=== PATIENT | male | born 1935 | race Caucasian/White ===

== ENCOUNTER 2019-02-19 13:42 | Outpatient (RCR) | payer MEDICARE, SELFPAY | END 2019-03-07 23:59 | disposition home or self-care (01) | LOC: PRC 13:42 | PROVIDERS: PCP General Practice; Visit Provider Family Medicine | DX: Z51.89 Encounter for other specified aftercare (principal) ==

== ENCOUNTER 2019-03-03 13:39 | Outpatient (RCR) | payer MEDICARE, OTHER, SELFPAY | END 2019-03-07 23:59 | disposition home or self-care (01) | LOC: PRC 13:39 | PROVIDERS: PCP General Practice; Visit Provider Family Medicine | DX: Z51.89 Encounter for other specified aftercare (principal) ==

== ENCOUNTER 2019-03-27 14:57 | Outpatient (RCR) | payer MEDICARE, OTHER, SELFPAY | END 2019-04-07 23:59 | disposition home or self-care (01) | LOC: PRC 14:57 | PROVIDERS: PCP General Practice; Visit Provider Family Medicine | DX: J44.9 Chronic obstructive pulmonary disease, unspecified (principal); Z51.89 Encounter for other specified aftercare | CPT/HCPCS: G0424 ==

== ENCOUNTER 2019-05-11 16:33 | Outpatient (RCR) | payer MEDICARE, OTHER, SELFPAY | END 2019-06-06 23:59 | disposition home or self-care (01) | LOC: PRC 16:33 | PROVIDERS: PCP General Practice; Visit Provider Family Medicine | DX: J44.9 Chronic obstructive pulmonary disease, unspecified (principal); Z51.89 Encounter for other specified aftercare ==